=== PATIENT | male | born 1985 | race Caucasian/White ===

== ENCOUNTER 2022-07-20 11:59 | Emergency (ER) | payer OTHER, SELFPAY ==
[2022-07-20 12:06] VITALS: BP 137/89; PULSE 72; RESP 14; TEMP 35.7; O2SAT 98; BMI 35.4
[2022-07-20] MEDS: TETANUS/DIPHTH/PERTUSSIS 0.5 ML SYRINGE IM (12:39)
--- NOTE | 2022-07-20 13:01 | ED_ITS ---
HPI - General Adult General Date Seen: 07/20/22 Chief complaint: Laceration/Wound Stated complaint: L middle finger laceration Time Seen by Provider: 07/20/22 12:05 History of Present Illness HPI narrative: Patient is a 37-year-old male who sustained a laceration to the tip of his left middle finger while he was making pancakes this morning. He was not going to come in but it seemed kind of deep and was continuing to bleed. No numbness or loss of function. Unsure of last tetanus. No other injuries or complaints Related Data Home Medications Medication Instructions Recorded Confirmed bupropion HCl 150 mg 24 hr tablet, mg PO 07/20/22 extended release sertraline 100 mg tablet mg 07/20/22 Allergies Allergy/AdvReac Type Severity Reaction Status Date / Time No Known Drug Allergies Allergy Verified 07/20/22 12:05 [facility] Social History Do you use any of these nicotine containing products: Vaping Products Second hand tobacco smoke exposure: No How often do you have a drink containing alcohol: never AUDIT-C Alcohol total score: 0 Non-prescribed substance use: denies use Exam Narrative: Exam Narrative: Vital signs reviewed In general, an alert, nontoxic male. Head: Normocephalic, atraumatic. Neck: Supple. Extremities: Examination of the left hand shows a 1 cm laceration across the distal finger pad near the nail. Bleeding is controlled. Distal CMS normal. Hand otherwise normal. Skin: Warm dry well perfused. Neurologic: Alert, conversant. Const: Vital Signs, click to edit/add: Vital Signs - 24 hr 07/20/22 12:06 Temperature 96.2 F L Pulse Rate [Right Pulse Oximeter] 72 Respiratory Rate 14 Blood Pressure [Ri ght Upper Arm] 137/89 Pulse Oximetry 98 Oxygen Delivery Me thod Room Air Documenting provider has reviewed patient's vital signs: yes Course Course Hospital Course: . Procedure note: Wound was anesthetized using lidocaine with epinephrine. Cleaned. Explored without evidence of foreign body or injury to deeper structures. Wound was closed using 5 0 nylon, a total of 3 simple interrupted superficial sutures were placed. He tolerated this well without immediate compl ication. A dressing was applied by the nurse. Routine wound care recommended. Return for signs of infection. Suture removal in about 7 days. Tetanus was updated today, last given in 2008. Vital Signs Vital signs: Initial Vital Signs Temperature 96.2 F L 07/20/22 12:06 Temperature Source Temporal Artery Scan 07/20/22 12:06 Pulse Rate 72 07/20/22 12:06 Respiratory Rate 14 07/20/22 12:06 Blood Pressure 137/89 07/20/22 12:06 Blood Pressure Mean 105 07/20/22 12:06 Blood Pressure Position Sitting 07/20/22 12:06 Pulse Oximetry 98 07/20/22 12:06 Oxygen Delivery Method 07/20/22 12:06 Vital Signs Temperature 96.2 F L 07/20/22 12:06 Pulse Rate 72 07/20/22 12:06 Respiratory Rate 14 07/20/22 12:06 Blood Pressure 137/89 07/20/22 12:06 Pulse Oximetry 98 07/20/22 12:06 Oxygen Delivery Method 07/20/22 12:06 Temperature 96.2 F L 07/20/22 12:06 Pulse Rate 72 07/20/22 12:06 Respiratory Rate 14 07/20/22 12:06 Blood Pressure 137/89 07/20/22 12:06 Pulse Oximetry 98 07/20/22 12:06 Oxygen Delivery Method 07/20/22 12:06 Discharge Plan Discharge Clinical Impression: Laceration Patient Disposition: Home, Self-Care Condition: Improved Instructions: Laceration (DC) Additional Instructions: Routine wound care, suture removal in about 7 days. Return for signs of infection Prescriptions: No Action sertraline 100 mg tablet bupropion HCl 150 mg tablet extended release 24 hr PO Label Comments: TAKE 1 TABLET BY MOUTH EVERY MORNING Stand Alone [facility]
== END 2022-07-20 13:04 | disposition home or self-care (01) ==
LOC: ED 12:52
PROVIDERS: Emergency Provider Emergency Medicine
DX: S61.213A Laceration without foreign body of left middle finger without damage to nail, initial encounter (principal); Y93.G3 Activity, cooking and baking; Y92.010 Kitchen of single-family (private) house as the place of occurrence of the external cause
CPT/HCPCS: 12001; 90471; 90715; 99282; 99283